=== PATIENT | male | born 1945 | race Caucasian/White ===

== ENCOUNTER 2016-09-17 12:18 | Inpatient (IN) | payer MEDICARE ==
[2016-09-17] VITALS (16 sets, daily range): BP systolic 103–133; BP diastolic 51–70
[~2016-09-17] VITALS: Ht 175.3 cm; Wt 59.5 kg
[~2016-09-17 12:18] MED LIST: AMLO5TAB PO; BACTRIM DS 8001 TA1 PO; BISOPROLOL 5MG T5 MG PO; FOLIC ACID 1MG T1 MG PO; HABITROL21 MG/24 H TD; K-DUR 2020 MEQ PO; KEFLEX 500MG.500 MG PO; LISINOPRIL10 MG PO; LORAZEPAM0.5 MG PO; OXAZEPAM10 MG PO; RISPERIDONE1 M2 PO; TAB-A-VITE1 TA1 PO; THIAMINE HCL100 MG PO; XARELTO15 MG PO
[2016-09-17 13:23] LABS: BUN 35 mg/dL (7-18)
[2016-09-17 13:26] LABS: GFR (ESTIMATED) 96 ML/MIN (>60)
[2016-09-17 13:32] LABS: LYMPH # 1.6 K/mm3 (0.7-4.5); LYMPH % 7.4 % (10-50)
[2016-09-17 13:34] LABS: HEMOGLOBIN 6.8 g/dL (14.1-18.0)
[2016-09-17 13:57] LABS: NEUTROPHILS 84 % (42-76)
--- NOTE | 2016-09-17 15:09 | CONSULT NOTE ---
Pharmacokinetic Consult Date of consult: 09/17/16 Time of consult: 5363 Referring provider: DR. ZAMAN Reason for consult: VANCOMYCIN AND TOBRAMYCIN DOSING Allergies: Coded Allergies: No Known Allergies (07/06/16) Home Medications: Active Scripts BISOPROLOL FUMARATE (Bisoprolol 5MG) 2.5 MG PO DAILY #30 TAB Ref 3 Prov: 07/19/16 Risperidone 1 MG PO BID #60 TAB Ref 3 Prov: 07/19/16 THIAMINE HCL (Thiamine HCl) 100 MG PO BID #60 TAB Ref 3 Prov: 07/19/16 Nicotine (Nicotine Patch) 21 MG TD DAILYP PRN SMOKING CESSATION #30 PATCH Ref 3 Prov: 07/19/16 MULTIPLE VITAMIN (Tab-A-Judith) 1 EACH PO 1700 #100 TAB Ref 2 Prov: 07/19/16 Amlodipine Besylate (Amlodipine) 5 MG PO DAILY #30 TAB Ref 3 Prov: 07/19/16 Lisinopril 10 MG PO BID #60 TAB Ref 3 Prov: 07/19/16 Rivaroxaban (Xarelto) 15 MG PO DAILY #14 TAB Ref 1 Prov: 07/19/16 SULFAMETHOXAZOLE W/TRIMETHOPRI (Bactrim Ds Tab) 1 TAB PO BID #20 TAB Prov: 07/19/16 Potassium Chloride (K-Dur) 20 MEQ PO BID #60 TER Prov: 07/19/16 FOLIC ACID (Folic Acid) 1 MG PO DAILY #30 TAB Ref 5 Prov: 09/04/15 Height (feet): 5 Height (inches): 9.00 Medical History: CAD? No Angina: No HI: No Hypertension? Yes Hyperlipidemia? No CHF? No DVT? No PE? No COPD? Yes Asthma? No Anemia? No GERD? No Gastric ulcers? No GI Bleed? No Hernia? No Thyroid Problems? No Hypothyroidism? No CVA? No Seizures? No Diabetes? No Renal Insuffiency? No UTI? No Stones? No BPH? No GB Disease: No Nephritic Syndrome? No Asplenia? No Hepatitis? No Sickle Cell Disease? No Arthritis? No Migraines? No Cataracts? No Glaucoma? No MRSA? No HIV? No TB? No Anxiety? Yes Depression? Yes Cancer? No More? Yes Additional hx: REFUSE TO TALK ABOUT MEDICAL HX; states he is not taking any meds Labs: Laboratory Tests 02/01/17 1300: Lactic Acid 1.4 09/17/16 1300: Sodium 133 L, Potassium 3.9, Chloride 99, Carbon Dioxide 25, BUN 35 H, Creatinine 0.8, Estimated GFR (MDRD) 96, Glucose 108 H, Calcium 8.8, Total Bilirubin 0.2, AST 43 H, ALT 35, Alkaline Phosphatase 204 H, Total Protein 6.5 , Albumin 1.6 L, Globulin 4.9 H, Albumin/Globulin Ratio 0.3 L, WBC 22.3 *H, RBC 2.30 L, Hgb 6.8 *L, Hct 20.7 *L, MCV 90.2, RDW 16.8, Plt Count 824 H, MPV 8.6, Gran % 85.3 H, Gran # 19.0 H, Total Counted 100, Lymphocytes % 7.4 L, Monocytes % 5.9, Eosinophils % 0.9, Basophils % 0.5, Neutrophils 84 H, Lymphocytes (Manual) 8 L, Lymphocytes # 1.6, Monocytes (Manual) 8, Monocytes # 1.3 H, Eosinophils # 0.2, Basophils # 0.1, Platelet Estimate MARKED INCREASE, PUBS MCHC 32.8, MCH 29.6 Microbiology 09/17 1300 BLOOD: Anaerobic Blood Culture - RECD 09/17 1300 BLOOD: Aerobic Blood Culture - RECD 09/17 1300 BLOOD: Anaerobic Blood Culture - RECD 09/17 1300 BLOOD: Aerobic Blood Culture - RECD Plan: BASED ON PATIENT FACTORS, RECOMMEND PATIENT START WITH VANCOMYCIN 1 GM Q18H AND TOBRAMYCIN 320 MG Q24H. PHARMACY WILL FOLLOW DAILY AND ADJUST APPROPRIATE. WOOD MILTON PHARMD at [phone]
[2016-09-17] MEDS ORDERED: ACETAMINOPHEN500 M5 FT (15:14)
[2016-09-17] MEDS ORDERED: ASPIRIN 81MG TA81 MG FT (15:15)
[2016-09-17] MEDS ORDERED: BISOPROLOL 5MG T5 MG FT (15:18)
[2016-09-17] MEDS ORDERED: RISPERDAL 0.20.25 MG FT (15:21)
[2016-09-17] MEDS ORDERED: FERROUS SULFAT325 M2 FT (15:23)
[2016-09-17] MEDS ORDERED: FOLIC ACID 1MG T1 MG FT (15:25)
[2016-09-17] MEDS ORDERED: NAMENDA10 M1 FT (15:29)
[2016-09-17] MEDS ORDERED: DAILY MULTIPLE1 T11 FT (15:33)
[2016-09-17] MEDS ORDERED: VALPROIC A250 MG/5 M FT (15:35)
[2016-09-17] MEDS ORDERED: VITAMIN B-1100 MG FT (15:36)
[2016-09-17] MEDS ORDERED: VITAMIN C500 M1 FT (15:37)
[2016-09-17] MEDS ORDERED: JUVEN1 PDR FT (15:39)
[2016-09-17] MEDS ORDERED: BANATROL PLUS1 SOL FT (15:40)
--- NOTE | 2016-09-17 15:40 | RADIOLOGY REPORT PS360 ---
CHEST-PORTABLE HISTORY: FEVER, CHRONIC ASPIRATION ORDERING PHYSICIAN: Mark Mcgowan MD PATIENT AGE: 70 years COMPARISON: 07/10/2016 FINDINGS: The cardiomediastinal silhouette and pulmonary vascularity are within normal limits. Left lower lobe pneumonia has improved compared to the previous exam. Lungs are clear. Left upper extremity PICC line is present with the tip in the region superior vena cava. Degenerative changes of the shoulders with bilateral spurring of the interaspect of the acromium. IMPRESSION: No acute finding. PICC line in place
[2016-09-17] MEDS ORDERED: MOTRIN 400MG.400 MG FT (15:48)
[2016-09-17] MEDS ORDERED: OMEPRAZOLE40 MG FT (15:49)
[2016-09-17] MEDS ORDERED: FLORASTOR250 M1 FT (15:51)
[2016-09-17] MEDS ORDERED: LEVSIN0.125 M1 FT (15:55)
[2016-09-17] MEDS ORDERED: BIOTENE473 ML OR (16:00)
[2016-09-17] MEDS ORDERED: BIOTENE DE (16:02)
[2016-09-17] MEDS ORDERED: AUGMENTIN 875-1 EACH FT (16:06)
[2016-09-17] MEDS ORDERED: VITAL CAL FT (16:18)
[2016-09-17 16:21] LABS: URINE BILIRUBIN - DIPSTICK NEGATIVE (NEG); URINE BLOOD NEGATIVE (NEG)
--- NOTE | 2016-09-17 18:03 | HISTORY AND PHYSICAL REPORT ---
Demographics: Admit date: 09/17/16 Chief complaint: Fever, anemia PRIMARY DIAGNOSIS: ANEMIA FEVER Allergies: Coded Allergies: No Known Allergies (07/06/16) History of present illness: History of present illness: 70 year old male with multiple medical problems including pulmonary emboli, CVA, chronic alcohol-related malnutrition and demetia, and chronic wounds was admitted from [facility] today secondary to anemia and high-grade fever. He was originally transferred to the out-patient infusion area for transfusion but found to have fever up to 103 with tachycardia and tachypnea and was admitted for management of both the anemia and fever. He has been running fevers intermittently since admission to [facility] in early August and most recently has been treated for both influenza type B (treatment complete) and now ESBL positive E. coli in his urine (treatment started on 09/13/16 and antibiotics changed on 09/16/16 based on sensitivities). With respect to chronic wounds, he has been seen weekly by wound-health and social care teacher at [facility] and has recently had debridement of wounds on both hips. The right hip wound was debrided earlier this week and bled substantially afterward for several hours, likely contributing to his degree of anemia. With respect to past stroke disease, PE, malnutrition and dementia, he had a PEG placed at [facility] approximately 1 month ago and has remained NPO other than ice chips at [facility]. Has been on Eliquis and ASA but Eliquis was stopped yesterday due to anemia. Past medical history: Family HX Family Hx Insignificant Yes (unknown and unable to obtain) Immunization HX DT/Tetanus Unknown Flu Refused Pneumonia Unknown Other UNABLE TO EVALUATE TB Test in last year Yes Result N/A General CAD? No Angina: No VA: No Hypertension? Yes Hyperlipidemia? No CHF? No DVT? No PE? Yes COPD? Yes Asthma? No Anemia? Yes GERD? No Gastric ulcers? No GI Bleed? No Hernia? No Thyroid Problems? No Hypothyroidism? No CVA? Yes Seizures? No Diabetes? No Renal Insuffiency? No UTI? Yes Stones? No BPH? No GB Disease: No Nephritic Syndrome? No Asplenia? No Hepatitis? No Sickle Cell Disease? No Arthritis? No Migraines? No Cataracts? No Glaucoma? No MRSA? No HIV? No TB? No Anxiety? Yes Depression? Yes Cancer? No More? Yes Additional hx: dysphagia requiring PEG, chronic malnutrition, past alcohol abuse with associated dementia Past Surgical HX Previous Surgery? PEG placed at [facility] Current home meds: Reported Medications Acetaminophen (Acetaminophen Extra Strength) 500 MG FT TID PRN PAIN ASPIRIN (Aspirin) 81 MG FT DAILY BISOPROLOL FUMARATE (Bisoprolol 5MG) 5 MG FT DAILY Risperidone (Risperdal 0.25MG Tab) 0.25 MG FT QHS Ferrous Sulfate (Ferrous Sulfate 325MG) 325 MG FT DAILY FOLIC ACID (Folic Acid) 1 MG FT DAILY MEMANTINE HCL (Namenda) 10 MG FT BID MULTIVITAMIN (Daily Multiple Vitamin) 1 TAB FT DAILY Valproic Acid (As Sodium Salt) (Valproic Acid) 250 MG FT QHS THIAMINE HCL (Vitamin B-1) 100 MG FT DAILY Ascorbic Acid (Vitamin C) 500 MG FT BID ARGININE/GLUTAMINE/CALCIUM HMB (John Packet) 1 PDR FT DAILY BANANA FLAKES/TOS (Banatrol Plus Powder Packet) 237 ML FT TID Ibuprofen (MOTRIN 400MG) 400 MG FT Q8HP PRN FEVER Omeprazole (Omeprazole 40MG) 40 MG FT DAILY Saccharomyces Boulardii (Florastor) 250 MG FT DAILY Hyoscyamine Sulfate (Levsin) 0.125 MG FT Q4H PRN STOMACH LACTOPEROXI/GLUC OXID/POT THIO (Biotene Oralbalance Gel) 2.2 ML DE Q4H Amoxicillin/Potassium Clav (Augmentin 875-125 Tablet) 1 EACH FT BID NUT.TX.IMPAIRED DIGEST/FIBER (Vital 1.5 Santo Liquid) 237 ML FT 20 HRS DAILY Social Hx: Smoking HX Tobacco No Alcohol Alcohol: Yes How much do you drink HISTORY OF ALCOHOL Comment UNABLE TO EVALUATE Hx of Drug Use Drug Use? No Patien't marital status is single Patient's support system is poor Comment: siblings involved but out of state Review of systems: Constitutional fever, weakness. Eyes No: no symptoms reported. Ears, Nose, Mouth, Throat No no symptoms reported, dental caries Respiratory other (copious secretions). Cardiovascular No chest pain, No edema Gastrointestinal/Abdominal No abdomen distended, No abdominal pain, No blood streaked bowels, No constipated, diarrhea Genitourinary see HPI. Musculoskeletal No: other (DENIES PAIN). Skin see HPI. Neurological Yes: weakness. Psychiatric Yes: depressed, other (aggitation improved, risperdal). Comment: taken from chart and some from patient, difficult to understand due to poor vocal quality Exam: Lab data for last 24 hours: Laboratory Tests 09/17/161514: Urine Color YELLOW, Urine Appearance CLEAR, Urine pH 7.5, Ur Specific Perry 1.010, Urine Protein TRACE H, Urine Ketones NEGATIVE, Urine Blood NEGATIVE, Urine Nitrate NEGATIVE, Urine Bilirubin NEGATIVE, Urine Urobilinogen 0.2, Ur Leukocyte Esterase NEGATIVE, Urine RBC NONE, Urine WBC OCC, Ur Squamous Epith Cells NONE, Calcium Oxalate Crystal OCC, Urine Bacteria TRACE, Urine Glucose NEGATIVE 09/17/16 1300: Lactic Acid 1.4 09/17/16 1300: Sodium 133 L, Potassium 3.9, Chloride 99, Carbon Dioxide 25, BUN 35 H, Creatinine 0.8, Estimated GFR (MDRD) 96, Glucose 108 H, Calcium 8.8, Total Bilirubin 0.2, AST 43 H, ALT 35, Alkaline Phosphatase 204 H, Total Protein 6.5 , Albumin 1.6 L, Globulin 4.9 H, Albumin/Globulin Ratio 0.3 L, WBC 22.3 *H, RBC 2.30 L, Hgb 6.8 *L, Hct 20.7 *L, MCV 90.2, RDW 16.8, Plt Count 824 H, MPV 8.6, Gran % 85.3 H, Gran # 19.0 H, Total Counted 100, Lymphocytes % 7.4 L, Monocytes % 5.9, Eosinophils % 0.9, Basophils % 0.5, Neutrophils 84 H, Lymphocytes (Manual) 8 L, Lymphocytes # 1.6, Monocytes (Manual) 8, Monocytes # 1.3 H, Eosinophils # 0.2, Basophils # 0.1, Platelet Estimate MARKED INCREASE, PUBS MCHC 32.8, MCH 29.6 Microbiology 09/17 1514 URINE CATH: Urine Culture - RECD 09/17 1299 BLOOD: Anaerobic Blood Culture - RECD 09/17 1299 BLOOD: Aerobic Blood Culture - RECD 09/17 1299 BLOOD: Anaerobic Blood Culture - RECD 09/17 1299 BLOOD: Aerobic Blood Culture - RECD Admission vital signs: 1ST Vital Signs Result Date Time Pulse Ox 98 09/17 1428 B/P 109/55 09/17 1428 O2 Delivery ROOM AIR 09/17 1428 Temp 99.5 09/17 1428 Pulse 109 09/17 1428 Resp 24 09/17 1603 Additional information: Chronically debilitated male resting in bed, appears much older than stated age. Heart with RRR, lungs are clear anterior bella. Abdomen is thin, soft, NT/ND, PEG without drainage or erythema. Pupils equal bilat, mouth is moist, poor dentition. Neck supple without masses. Moves all extremities which are thin with muscle wasting. 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 Catheter is draining clear yellow urine. Wakes easily to voice, moves all extremities, answers some simple questions but vocal quality if very soft and poor and difficult to completely discern Plan: Problem List 1. Leukocytosis Assessment/Plan most likely related to ESBL positive UTI, trend during admission. Antibiotics started with vancomycin and tobra via PICC. New cultures pending 2. Decubitus ulcer Assessment/Plan culture done of the left hip wound 3. Protein-calorie malnutrition, severe Status Chronic Assessment/Plan on tube feeds, panel machine tender consulted 4. Pulmonary embolism Status Acute Assessment/Plan hold anticoagulants due to severe anemia 5. Fever 6. UTI (urinary tract infection) Assessment/Plan known ESBL positive ecoli, continue tobramycin. New culture collected at admit 7. Anemia Assessment/Plan transfuse 2 units tonight, FU H&H at 1 hour post and likely will need additional units. Continue supplements. Check stool for occult blood Plan: Prognosis overall is poor due to his malnutrition and multiple medical problems. Currently is a full-code but will attempt to make contact next-of-kin in the next 24 hours with update and to discuss wishes regarding aggressiveness of care.
[2016-09-18] VITALS (13 sets, daily range): BP systolic 114–153; BP diastolic 62–83
[2016-09-18 05:40] LABS: HEMOGLOBIN 8.9 g/dL (14.1-18.0); LYMPH # 1.5 K/mm3 (0.7-4.5)
--- NOTE | 2016-09-18 07:40 | PHARMACY CLINIC NOTE ---
Patient Demographics Patient Demographics Admission date: 09/17/16 Date: 09/18/16 Time: 0739 Allergies Coded Allergies: No Known Allergies (07/06/16) HEIGHT- FT: 5 IN: 9.00 K.692 VTE General Information Labs: Laboratory Tests 09/18 09/18 09/17 0505 0335 1300 Hematology Hgb (14.1 - 18.0 g/dL) 8.9 L 9.0 L 6.8 *L Hct (42.0 - 52.0 %) 28.2 L 28.7 L 20.7 *L Plt Count (142 - 424 K/mm3) 733 H 824 H Disclaimer The following section includes nursing documentation that has been pulled in for pharmacy review. Patient's VTE score: 9 Patient's VTE Risk: MOD RISK Clinical trial participant? No VTE prophylaxis NQF [id number] VTE prophylaxis ordered? Yes Type of prophylaxis/treatment: JAVIER at 0739
--- NOTE | 2016-09-18 08:52 | ACUTE CARE PROGRESS NOTE (QUA) ---
Progress Notes Subjective Date 09/18/16 Time 08 Note 70 yr old male admitted for fever and anemia with Hgb 6.8, seen this morning for routine FU. He is much more alert this morning, voice quality is improved and he states "not too bad" when I ask how he is this morning. He denies pain. Alert, oriented to person only. Most of his speech is discernable today. Heart has RRR, lungs are clear anterior bella. Abdomen is soft, ND, + BS. No edema. Wounds with dressings intact. Catheter with clear yellow urine Patient/family reports: feeling better Nursing reports: no complaints Objective Findings Last VS-Temp:99.1 B/P:153/76 Pulse:90 Resp:22 SaO2:99 ROOM AIR Last weight lbs:127 oz:3 K.692 Method:Bed Scales Reviewed: medications, vital signs, lab results, radiology report, consult note Assessment/Plan Problem List 1. Leukocytosis Assessment/Plan: marginal improvement this morning, continue to trend 2. Decubitus ulcer Assessment/Plan: culture pending, continue dressing changes 3. Protein-calorie malnutrition, severe Status: Chronic Assessment/Plan: resume tube feedings today per school athletic director recommendations 4. Pulmonary embolism Status: Acute 5. Fever 6. UTI (urinary tract infection) Assessment/Plan: Continue tobra and vancomycin IV, culture pending. Known ESBL positive ecoli in urine on admission. 7. Anemia Assessment/Plan: Hgb above 8 today, stool occult blood pending. Repeat H&H in AM. Patient condition Improving Plan: continue current care, consult pharmaceutical engineer This inpt stay is expected to cross 2 MNs from start of care Yes Comments: Emergency guardianship documents recieved today, naming his brother, Omero Evans as guardian, as well as wishes for DNR status.
--- NOTE | 2016-09-18 08:52 | ACUTE CARE PROGRESS NOTE (QUA) ---
Progress Notes Subjective Date 09/18/16 Time 08 Note 70 yr old male admitted for fever and anemia with Hgb 6.8, seen this morning for routine FU. He is much more alert this morning, voice quality is improved and he states "not too bad" when I ask how he is this morning. He denies pain. Alert, oriented to person only. Most of his speech is discernable today. Heart has RRR, lungs are clear anterior bella. Abdomen is soft, ND, + BS. No edema. Wounds with dressings intact. Catheter with clear yellow urine Patient/family reports: feeling better Nursing reports: no complaints Objective Findings Last VS-Temp:99.1 B/P:153/76 Pulse:90 Resp:22 SaO2:99 ROOM AIR Last weight lbs:127 oz:3 K.692 Method:Bed Scales Reviewed: medications, vital signs, lab results, radiology report, consult note Assessment/Plan Problem List 1. Leukocytosis Assessment/Plan: marginal improvement this morning, continue to trend 2. Decubitus ulcer Assessment/Plan: culture pending, continue dressing changes 3. Protein-calorie malnutrition, severe Status: Chronic Assessment/Plan: resume tube feedings today per road freight conductor recommendations 4. Pulmonary embolism Status: Acute 5. Fever 6. UTI (urinary tract infection) Assessment/Plan: Continue tobra and vancomycin IV, culture pending. Known ESBL positive ecoli in urine on admission. 7. Anemia Assessment/Plan: Hgb above 8 today, stool occult blood pending. Repeat H&H in AM. Patient condition Improving Plan: continue current care, consult press operator apprentice This inpt stay is expected to cross 2 MNs from start of care Yes Comments: Emergency guardianship documents recieved today, naming his brother, Omero Evans as guardian, as well as wishes for DNR status.
--- NOTE | 2016-09-18 11:04 | CONSULT NOTE ---
Pharmacokinetic Consult Date of consult: 09/18/16 Time of consult: 1100 Referring provider: DR. ZAMAN Reason for consult: TOBRAMYCIN LEVELS AND INTERVAL CHANGE Allergies: Coded Allergies: No Known Allergies (07/06/16) Home Medications: Reported Medications Hyoscyamine Sulfate (Levsin) 0.125 MG FT Q4HP PRN STOMACH Acetaminophen (Acetaminophen Extra Strength) 500 MG FT TID PRN PAIN ASPIRIN (Aspirin) 81 MG FT DAILY BISOPROLOL FUMARATE (Bisoprolol 5MG) 5 MG FT DAILY Risperidone (Risperdal 0.25MG Tab) 0.25 MG FT QHS Ferrous Sulfate (Ferrous Sulfate 325MG) 325 MG FT DAILY FOLIC ACID (Folic Acid) 1 MG FT DAILY MEMANTINE HCL (Namenda) 10 MG FT BID MULTIVITAMIN (Daily Multiple Vitamin) 1 TAB FT DAILY Valproic Acid (As Sodium Salt) (Valproic Acid) 250 MG FT QHS THIAMINE HCL (Vitamin B-1) 100 MG FT DAILY Ascorbic Acid (Vitamin C) 500 MG FT BID ARGININE/GLUTAMINE/CALCIUM HMB (John Packet) 1 PDR FT DAILY BANANA FLAKES/TOS (Banatrol Plus Powder Packet) 237 ML FT TID Omeprazole (Omeprazole 40MG) 40 MG FT DAILY Saccharomyces Boulardii (Florastor) 250 MG FT DAILY LACTOPEROXI/GLUC OXID/POT THIO (Biotene Oralbalance Gel) 2.2 ML DE Q4H NUT.TX.IMPAIRED DIGEST/FIBER (Vital 1.5 Santo Liquid) 237 ML FT 20 HRS DAILY Discontinued Reported Medications Ibuprofen (MOTRIN 400MG) 400 MG FT Q8HP PRN FEVER Amoxicillin/Potassium Clav (Augmentin 875-125 Tablet) 1 EACH FT BID Height (feet): 5 Height (inches): 9.00 Medical History: CAD? No Angina: No KS: No Hypertension? Yes Hyperlipidemia? No CHF? No DVT? No PE? Yes COPD? Yes Asthma? No Anemia? Yes GERD? No Gastric ulcers? No GI Bleed? No Hernia? No Thyroid Problems? No Hypothyroidism? No CVA? Yes Seizures? No Diabetes? No Renal Insuffiency? No UTI? Yes Stones? No BPH? No GB Disease: No Nephritic Syndrome? No Asplenia? No Hepatitis? No Sickle Cell Disease? No Arthritis? No Migraines? No Cataracts? No Glaucoma? No MRSA? No HIV? No TB? No Anxiety? Yes Depression? Yes Cancer? No More? Yes Additional hx: dysphagia requiring PEG, chronic malnutrition, past alcohol abuse with associated dementia Labs: Laboratory Tests 09/18/16 0505: Sodium 137, Potassium 3.5, Chloride 102, Carbon Dioxide 24, BUN 29 H, Creatinine 0.7 L, Estimated Creat Clear 82, Estimated GFR (MDRD) 112, Glucose 92, Calcium 9.0, WBC 21.8 *H, RBC 3.16 L, Hgb 8.9 L, Hct 28.2 L, MCV 89.2, RDW 16.2, Plt Count 733 H, MPV 8.6, Gran % 84.8 H, Gran # 18.5 H, Lymphocytes % 7.0 L, Monocytes % 6.2, Eosinophils % 1.4, Basophils % 0.6, Lymphocytes # 1.5 , Monocytes # 1.4 H, Eosinophils # 0.3, Basophils # 0.1, PUBS MCHC 31.6 L, MCH 28.2, Random Tobramycin 6.0 09/18/16 0335: Hgb 9.0 L, Hct 28.7 L 09/17/164: Random Tobramycin 10.2 09/17/162025: Misc Test Units BLOOD UNIT RELEASE 09/17/16 1515: Urine Color YELLOW, Urine Appearance CLEAR, Urine pH 7.5, Ur Specific Pollock 1.010, Urine Protein TRACE H, Urine Ketones NEGATIVE, Urine Blood NEGATIVE, Urine Nitrate NEGATIVE, Urine Bilirubin NEGATIVE, Urine Urobilinogen 0.2, Ur Leukocyte Esterase NEGATIVE, Urine RBC NONE, Urine WBC OCC, Ur Squamous Epith Cells NONE, Calcium Oxalate Crystal OCC, Urine Bacteria TRACE, Urine Glucose NEGATIVE 09/17/16 1300: Lactic Acid 1.4 09/17/16 1300: Sodium 133 L, Potassium 3.9, Chloride 99, Carbon Dioxide 25, BUN 35 H, Creatinine 0.8, Estimated GFR (MDRD) 96, Glucose 108 H, Calcium 8.8, Total Bilirubin 0.2, AST 43 H, ALT 35, Alkaline Phosphatase 204 H, Total Protein 6.5 , Albumin 1.6 L, Globulin 4.9 H, Albumin/Globulin Ratio 0.3 L, WBC 22.3 *H, RBC 2.30 L, Hgb 6.8 *L, Hct 20.7 *L, MCV 90.2, RDW 16.8, Plt Count 824 H, MPV 8.6, Gran % 85.3 H, Gran # 19.0 H, Total Counted 100, Lymphocytes % 7.4 L, Monocytes % 5.9, Eosinophils % 0.9, Basophils % 0.5, Neutrophils 84 H, Lymphocytes (Manual) 8 L, Lymphocytes # 1.6, Monocytes (Manual) 8, Monocytes # 1.3 H, Eosinophils # 0.2, Basophils # 0.1, Platelet Estimate MARKED INCREASE, PUBS MCHC 32.8, MCH 29.6 Microbiology 09/17 151 HIP: Wound Culture - RECD 09/17 151 URINE CATH: Urine Culture - RES 09/17 1300 BLOOD: Anaerobic Blood Culture - RECD 09/17 1300 BLOOD: Aerobic Blood Culture - RECD 09/17 1300 BLOOD: Anaerobic Blood Culture - RECD 09/17 1300 BLOOD: Aerobic Blood Culture - RECD Plan: PATIENT TOBRAMYCIN LEVELS AT 2 AND 10 HR POST INFUSION WERE 10.2 MCG/ML AND 6 MCG/ML, RESPECTIVELY, WITH CALCULATED C MAX 10.9 MCG/ML AND CMIN OF 2.28 MCG/ML AT 24 HOUR DOSING INTERVAL. WILL EXTEND CURRENT INTERVAL OUT TO ~36 HR AND OBTAIN TROUGH AT THAT POINT. PATIENT LIKELY TO NEED TOBRAMYCIN 400 MG Q48H. PHARMACY WILL FOLLOW DAILY AND ADJUST APPROPRIATE. WOOD MILTON, PHARMD at 1104
[2016-09-18 16:37] LABS: STOOL OCCULT BLOOD NEG (NEG)
[2016-09-19] VITALS (9 sets, daily range): BP systolic 124–185; BP diastolic 60–97
[2016-09-19 06:16] LABS: HEMOGLOBIN 8.8 g/dL (14.1-18.0); LYMPH # 1.8 K/mm3 (0.7-4.5); LYMPH % 7.3 % (10-50)
--- NOTE | 2016-09-19 08:14 | ACUTE CARE PROGRESS NOTE (QUA) ---
Progress Notes Subjective Date 09/19/16 Time 0812 Note Overall patient is much more talkative, has much better color and capillary refill. Labs from this morning reviewed. Antibiotics reviewed. Anterior lung bella with good air movement, continues with rhonchi, abdomen soft and nontender, G-tube infusing well. Skin turgor is much improved. Wounds are as noted on nursing pictorial documentation. Objective Findings Last VS-Temp:99.9 B/P:170/60 Pulse:110 Resp:20 SaO2:97 ROOM AIR Last weight lbs:127 oz:3 K.692 Method:Bed Scales Assessment/Plan Problem List 1. Leukocytosis 2. Decubitus ulcer 3. Protein-calorie malnutrition, severe Status: Chronic 4. Pulmonary embolism Status: Acute 5. Fever 6. UTI (urinary tract infection) 7. Anemia Patient condition Improving Plan: continue current care, change in antibiotic coverage as noted below.close follow-up. Continue supportive care. Reviewed current DNR status, guardianship change, I agree with DNR status given patient's overwhelming medical problems and poor prognosis. This inpt stay is expected to cross 2 MNs from start of care Yes Antibiotic Stewardship (2) Current Culture Results Microbiology 09/18 1613 SPUTUM: Sputum Culture - ORD 09/18 1613 SPUTUM: Gram Stain - ORD 09/17 1515 HIP: Wound Culture - COMP KLEBSIELLA PNEUMONIAE 09/17 1515 URINE CATH: Urine Culture - COMP 09/17 1300 BLOOD: Anaerobic Blood Culture - RECD 09/17 1300 BLOOD: Aerobic Blood Culture - RECD Infxn that will respond? Yes Right drug,dose,and route? Yes More targeted antbx? No How long atbx needed? 10 at 0813
[2016-09-19 08:39] LABS: NEUTROPHILS 84 % (42-76)
--- NOTE | 2016-09-19 09:41 | CONSULT NOTE ---
Pharmacokinetic Consult Date of consult: 09/19/16 Time of consult: 935 Referring provider: DR. ZAMAN Reason for consult: VANCOMYCIN AND TOBRAMYCIN TROUGH LEVELS Allergies: Coded Allergies: No Known Allergies (07/06/16) Home Medications: Reported Medications Hyoscyamine Sulfate (Levsin) 0.125 MG FT Q4HP PRN STOMACH Acetaminophen (Acetaminophen Extra Strength) 500 MG FT TID PRN PAIN ASPIRIN (Aspirin) 81 MG FT DAILY BISOPROLOL FUMARATE (Bisoprolol 5MG) 5 MG FT DAILY Risperidone (Risperdal 0.25MG Tab) 0.25 MG FT QHS Ferrous Sulfate (Ferrous Sulfate 325MG) 325 MG FT DAILY FOLIC ACID (Folic Acid) 1 MG FT DAILY MEMANTINE HCL (Namenda) 10 MG FT BID MULTIVITAMIN (Daily Multiple Vitamin) 1 TAB FT DAILY Valproic Acid (As Sodium Salt) (Valproic Acid) 250 MG FT QHS THIAMINE HCL (Vitamin B-1) 100 MG FT DAILY Ascorbic Acid (Vitamin C) 500 MG FT BID ARGININE/GLUTAMINE/CALCIUM HMB (John Packet) 1 PDR FT DAILY BANANA FLAKES/TOS (Banatrol Plus Powder Packet) 237 ML FT TID Omeprazole (Omeprazole 40MG) 40 MG FT DAILY Saccharomyces Boulardii (Florastor) 250 MG FT DAILY LACTOPEROXI/GLUC OXID/POT THIO (Biotene Oralbalance Gel) 2.2 ML DE Q4H NUT.TX.IMPAIRED DIGEST/FIBER (Vital 1.5 Santo Liquid) 237 ML FT 20 HRS DAILY Discontinued Reported Medications Ibuprofen (MOTRIN 400MG) 400 MG FT Q8HP PRN FEVER Amoxicillin/Potassium Clav (Augmentin 875-125 Tablet) 1 EACH FT BID Height (feet): 5 Height (inches): 9.00 Medical History: CAD? No Angina: No [place]: No Hypertension? Yes Hyperlipidemia? No CHF? No DVT? No PE? Yes COPD? Yes Asthma? No Anemia? Yes GERD? No Gastric ulcers? No GI Bleed? No Hernia? No Thyroid Problems? No Hypothyroidism? No CVA? Yes Seizures? No Diabetes? No Renal Insuffiency? No UTI? Yes Stones? No BPH? No GB Disease: No Nephritic Syndrome? No Asplenia? No Hepatitis? No Sickle Cell Disease? No Arthritis? No Migraines? No Cataracts? No Glaucoma? No MRSA? No HIV? No TB? No Anxiety? Yes Depression? Yes Cancer? No More? Yes Additional hx: dysphagia requiring PEG, chronic malnutrition, past alcohol abuse with associated dementia Labs: Laboratory Tests 09/19/16 0610: Valproic Acid 11.9 L 09/19/16 0610: Sodium 139, Potassium 3.0 L, Chloride 106, Carbon Dioxide 24, BUN 17, Creatinine 0.6 L, Estimated Creat Clear 96, Estimated GFR (MDRD) 134, Glucose 113 H, Calcium 8.9, WBC 24.4 *H, RBC 3.13 L, Hgb 8.8 L, Hct 28.1 L, MCV 89.8 , RDW 16.1, Plt Count 752 H, MPV 8.5, Gran % 84.8 H, Gran # 20.7 H, Total Counted 100, Lymphocytes % 7.3 L, Monocytes % 5.9, Eosinophils % 1.4, Basophils % 0.6, Neutrophils 84 H, Lymphocytes (Manual) 12, Lymphocytes # 1.8, Monocytes (Manual) 4, Monocytes # 1.5 H, Eosinophils # 0.3, Basophils # 0.2, Platelet Estimate MARKED INCREASE, Hypochromasia 1+, Anisocytosis 1+, PUBS MCHC 31.3 L, MCH 28.1, Tobramycin Trough 0.5 09/19/16 0045: Vancomycin Trough 11.7 H 09/18/16 1530: Stool Occult Blood NEG Microbiology 09/18 1613 SPUTUM: Sputum Culture - ORD 09/18 1613 SPUTUM: Gram Stain - ORD Problem List: 1. Fever Plan: BASED ON VANCOMYCIN TROUGH LEVEL, RECOMMEND CONTINUING VANCOMYCIN 1 GM IV Q18H. BASED ON TOBRAMYCIN 12-HOUR POST INFUSION LEVEL, RECOMMEND CHANGING INTERVAL TO Q36H. WOUND CULTURE=KLEBSIELLA PNEUMONIAE RESISTANT TO TOBRAMYCIN SENSITIVE TO GENTAMICIN AND INVANZ BASED ON PATIENT FACTORS, RECOMMEND GENTAMICIN 400 MG IV Q36H. PHARMACY WILL FOLLOW DAILY AND ADJUST APPROPRIATE. at 0941
[2016-09-20] VITALS (9 sets, daily range): BP systolic 118–156; BP diastolic 54–92
[2016-09-20 07:30] LABS: LYMPH # 1.3 K/mm3 (0.7-4.5); LYMPH % 5.1 % (10-50)
[2016-09-20 07:44] LABS: HEMOGLOBIN 8.5 g/dL (14.1-18.0)
--- NOTE | 2016-09-20 08:14 | ACUTE CARE PROGRESS NOTE (QUA) ---
Progress Notes Admission Date: 09/17/16 Subjective Date 09/20/16 Time 0813 Note Patient continues to be alert. Yesterday through the evening had heart rates in the 150s. His regular bisoprolol dose was started. Lungs have rhonchi, skin is unchanged, skin turgor is improved. He is pleasant and talkative. Objective Findings Last VS-Temp:99.0 B/P:118/54 Pulse:107 Resp:18 SaO2:94 ROOM AIR Last weight lbs:121 oz:2 K.941 Method:Bed Scales Assessment/Plan Problem List 1. Leukocytosis 2. Decubitus ulcer 3. Protein-calorie malnutrition, severe Status: Chronic 4. Pulmonary embolism Status: Acute 5. Fever 6. UTI (urinary tract infection) 7. Anemia Patient condition Improving Plan: continue current care, continue antibiotics, discussed with skilled nursing whether or not venous access will be needed for long-term antibiotics. This inpt stay is expected to cross 2 MNs from start of care Yes Antibiotic Stewardship (2) Infxn that will respond? Yes Right drug,dose,and route? Yes More targeted antbx? No at 0814
--- NOTE | 2016-09-20 08:14 | ACUTE CARE PROGRESS NOTE (QUA) ---
Progress Notes Admission Date: 09/17/16 Subjective Date 09/20/16 Time 0813 Note Patient continues to be alert. Yesterday through the evening had heart rates in the 150s. His regular bisoprolol dose was started. Lungs have rhonchi, skin is unchanged, skin turgor is improved. He is pleasant and talkative. Objective Findings Last VS-Temp:99.0 B/P:118/54 Pulse:107 Resp:18 SaO2:94 ROOM AIR Last weight lbs:121 oz:2 K.941 Method:Bed Scales Assessment/Plan Problem List 1. Leukocytosis 2. Decubitus ulcer 3. Protein-calorie malnutrition, severe Status: Chronic 4. Pulmonary embolism Status: Acute 5. Fever 6. UTI (urinary tract infection) 7. Anemia Patient condition Improving Plan: continue current care, continue antibiotics, discussed with assisted whether or not venous access will be needed for long-term antibiotics. This inpt stay is expected to cross 2 MNs from start of care Yes Antibiotic Stewardship (2) Infxn that will respond? Yes Right drug,dose,and route? Yes More targeted antbx? No at 0814
[2016-09-21] VITALS (8 sets, daily range): BP systolic 114–152; BP diastolic 53–85
--- NOTE | 2016-09-21 08:19 | ACUTE CARE PROGRESS NOTE (QUA) ---
Progress Notes Subjective Date 09/21/16 Time 0816 Note Patient is more alert today, oriented 2, very talkative. Anterior lung bella are clear, heart rate regular. Skin turgor is improved, his wounds are still awful looking with drainage, foul, purulent drainage and blood on the dressing. Objective Findings Last VS-Temp:97.2 B/P:149/85 Pulse:101 Resp:22 SaO2:99 ROOM AIR Last weight lbs:121 oz:4 K.998 Method:Bed Scales Assessment/Plan Problem List 1. Leukocytosis 2. Decubitus ulcer 3. Protein-calorie malnutrition, severe Status: Chronic 4. Pulmonary embolism Status: Acute 5. Fever 6. UTI (urinary tract infection) 7. Anemia Patient condition Improving, Guarded Plan: continue current care, although patient has improved he continues to exhibit worsening leukocytosis and evidence of severe infection, compromised by his severe protein calorie malnutrition and burden of infection. I do not believe he has a good prognosis. We will continue IV antibiotics. Consider transfer back to skilled nursing with palliative care if we can maintain long-term IV access. This inpt stay is expected to cross 2 MNs from start of care Yes Antibiotic Stewardship (2) Infxn that will respond? Yes Right drug,dose,and route? Yes More targeted antbx? No at 0818
--- NOTE | 2016-09-21 12:51 | CONSULT NOTE ---
Pharmacokinetic Consult Date of consult: 09/21/16 Time of consult: 1249 Referring provider: DR. ZAMAN Reason for consult: VANCOMYCIN AND GENTAMICIN TROUGH LEVELS Allergies: Coded Allergies: No Known Allergies (07/06/16) Home Medications: Reported Medications Hyoscyamine Sulfate (Levsin) 0.125 MG FT Q4HP PRN STOMACH Acetaminophen (Acetaminophen Extra Strength) 500 MG FT TID PRN PAIN ASPIRIN (Aspirin) 81 MG FT DAILY BISOPROLOL FUMARATE (Bisoprolol 5MG) 5 MG FT DAILY Risperidone (Risperdal 0.25MG Tab) 0.25 MG FT QHS Ferrous Sulfate (Ferrous Sulfate 325MG) 325 MG FT DAILY FOLIC ACID (Folic Acid) 1 MG FT DAILY MEMANTINE HCL (Namenda) 10 MG FT BID MULTIVITAMIN (Daily Multiple Vitamin) 1 TAB FT DAILY Valproic Acid (As Sodium Salt) (Valproic Acid) 250 MG FT QHS THIAMINE HCL (Vitamin B-1) 100 MG FT DAILY Ascorbic Acid (Vitamin C) 500 MG FT BID ARGININE/GLUTAMINE/CALCIUM HMB (John Packet) 1 PDR FT DAILY BANANA FLAKES/TOS (Banatrol Plus Powder Packet) 237 ML FT TID Omeprazole (Omeprazole 40MG) 40 MG FT DAILY Saccharomyces Boulardii (Florastor) 250 MG FT DAILY LACTOPEROXI/GLUC OXID/POT THIO (Biotene Oralbalance Gel) 2.2 ML DE Q4H NUT.TX.IMPAIRED DIGEST/FIBER (Vital 1.5 Santo Liquid) 237 ML FT 20 HRS DAILY Discontinued Reported Medications Ibuprofen (MOTRIN 400MG) 400 MG FT Q8HP PRN FEVER Amoxicillin/Potassium Clav (Augmentin 875-125 Tablet) 1 EACH FT BID Height (feet): 5 Height (inches): 9.00 Medical History: CAD? No Angina: No [place]: No Hypertension? Yes Hyperlipidemia? No CHF? No DVT? No PE? Yes COPD? Yes Asthma? No Anemia? Yes GERD? No Gastric ulcers? No GI Bleed? No Hernia? No Thyroid Problems? No Hypothyroidism? No CVA? Yes Seizures? No Diabetes? No Renal Insuffiency? No UTI? Yes Stones? No BPH? No GB Disease: No Nephritic Syndrome? No Asplenia? No Hepatitis? No Sickle Cell Disease? No Arthritis? No Migraines? No Cataracts? No Glaucoma? No MRSA? No HIV? No TB? No Anxiety? Yes Depression? Yes Cancer? No More? Yes Additional hx: dysphagia requiring PEG, chronic malnutrition, past alcohol abuse with associated dementia Labs: Laboratory Tests 09/21/16 0640: Vancomycin Trough 11.4 H 09/21/16 0640: Random Gentamicin 4.5 Microbiology 09/20 1350 SPUTUM: Sputum Culture - RES 09/20 1350 SPUTUM: Gram Stain - RES Problem List: 1. MRSA pneumonia 2. Fever Plan: BASED ON GENTAMICIN LEVEL, RECOMMEND CONTINUING GENTAMICIN 400 MG IV Q36H. BASED ON VANCOMYCIN TROUGH LEVEL, RECOMMEND INCREASING DOSE TO VANCOMYCIN 1250 MG IV Q18H. PHARMACY JESSIE CONTINUE TO MONITOR DAILY AND ADJUST APPROPRIATE. at 8192
[2016-09-22] VITALS (7 sets, daily range): BP systolic 118–157; BP diastolic 64–90
--- NOTE | 2016-09-22 07:58 | ACUTE CARE PROGRESS NOTE (QUA) ---
Progress Notes Subjective Date 09/22/16 Time 0756 Note Overall patient remains alert, complains of a headache this morning, denies breathing problems. Wounds are slightly improved with good nursing care. Lungs are clear, abdomen soft, G-tube infusing well. Overall patient appears chronically and relentlessly ill. Leukocytosis has slightly worsened, renal function is normal Objective Findings Last VS-Temp:101.0 B/P:135/64 Pulse:101 Resp:24 SaO2:95 OXYGEN Last weight lbs:123 oz:4 K.905 Method:Bed Scales Assessment/Plan Problem List 1. Leukocytosis 2. Decubitus ulcer 3. Protein-calorie malnutrition, severe Status: Chronic 4. Pulmonary embolism Status: Acute 5. Fever 6. UTI (urinary tract infection) 7. Anemia Patient condition Stable, Guarded Plan: pplan will be to [facility], start Unasyn therapy to cover anaerobes and to continue coverage for Klebsiella. I think this patient is at the end of the line as far as aggressive antibiotic therapy and would be a good hospice candidate if they would agree to continue antibiotics. Otherwise I think he can be transferred back to his [facility] if they will accept him given his current febrile status and his overall infective status. This inpt stay is expected to cross 2 MNs from start of care Yes Antibiotic Stewardship (2) Current Culture Results Microbiology 09/20 1350 SPUTUM: Sputum Culture - COMP STAPHYLOCOCCUS AUREUS 09/20 1350 SPUTUM: Gram Stain - COMP 09/17 1515 HIP: Wound Culture - COMP KLEBSIELLA PNEUMONIAE 09/17 1515 URINE CATH: Urine Culture - COMP 09/17 1300 BLOOD: Anaerobic Blood Culture - RES 09/17 1300 BLOOD: Aerobic Blood Culture - RES Infxn that will respond? Yes Right drug,dose,and route? Yes More targeted antbx? No How long atbx needed? 10 at 0758
[2016-09-23] VITALS (21 sets, daily range): BP systolic 124–159; BP diastolic 55–88
[2016-09-23 06:34] LABS: LYMPH # 1.3 K/mm3 (0.7-4.5); LYMPH % 5.8 % (10-50)
[2016-09-23 06:36] LABS: HEMOGLOBIN 7.9 g/dL (14.1-18.0)
--- NOTE | 2016-09-23 08:22 | ACUTE CARE PROGRESS NOTE (QUA) ---
Progress Notes Subjective Date 09/23/16 Time 0730 Note Patient has had increased temps through the night. This morning he will open he eyes, but is not communicating or answering simple yes/no questions. Appears comfortable will no grimacing noted on exam. Opens eyes to voice. Lung sounds with coarse crackles right base, left clear. Rate and rhythm regular. Abdomen soft and non-tender. Wounds have improved some, see nursing documentation. Patient/family reports: no complaints Nursing reports: fever Objective Findings Last VS-Temp:101.3 B/P:159/73 Pulse:116 Resp:20 SaO2:100 OXYGEN Last weight lbs:129 oz:9 K.769 Method:Bed Scales Reviewed: medications, vital signs, lab results Assessment/Plan Problem List 1. Leukocytosis Assessment/Plan: Continue Unasyn therapy to cover anaerobes and gentamicin and vancomycin for Klebsiella. 2. Decubitus ulcer Assessment/Plan: Continue wound care. 3. Protein-calorie malnutrition, severe Status: Chronic Assessment/Plan: Continue tube feedings. 4. Pulmonary embolism Status: Acute 5. Fever Assessment/Plan: See above. 6. UTI (urinary tract infection) Assessment/Plan: See above 7. Anemia Assessment/Plan: Transfusion 2 units PRBCs today. Plan to transfer back to intermediate tomorrow if they will except. Hospice declined due to extensive antibiotic regimen. 8. Hypokalemia Status: Acute Assessment/Plan: Potassium replacement this morning. Recheck BMP at 1300 Patient condition Guarded Plan: continue current care (see above) This inpt stay is expected to cross 2 MNs from start of care Yes Antibiotic Stewardship (2) Infxn that will respond? Yes Right drug,dose,and route? Yes More targeted antbx? No
[2016-09-23 11:47] LABS: ABO BLOOD TYPE O; RH BLOOD TYPE POSITIVE
[2016-09-23 11:48] LABS: ANTIHUMAN GLOB CROSSMATCH COMPAT
[2016-09-23 14:28] LABS: NEUTROPHILS 86 % (42-76)
--- NOTE | 2016-09-23 14:44 | CONSULT NOTE ---
Pharmacokinetic Consult Date of consult: 09/23/16 Time of consult: 1422 Referring provider: DR. ZAMAN Reason for consult: VANCOMYCIN TROUGH LEVEL Allergies: Coded Allergies: No Known Allergies (07/06/16) Home Medications: Reported Medications Hyoscyamine Sulfate (Levsin) 0.125 MG FT Q4HP PRN STOMACH Acetaminophen (Acetaminophen Extra Strength) 500 MG FT TID PRN PAIN ASPIRIN (Aspirin) 81 MG FT DAILY BISOPROLOL FUMARATE (Bisoprolol 5MG) 5 MG FT DAILY Risperidone (Risperdal 0.25MG Tab) 0.25 MG FT QHS Ferrous Sulfate (Ferrous Sulfate 325MG) 325 MG FT DAILY FOLIC ACID (Folic Acid) 1 MG FT DAILY MEMANTINE HCL (Namenda) 10 MG FT BID MULTIVITAMIN (Daily Multiple Vitamin) 1 TAB FT DAILY Valproic Acid (As Sodium Salt) (Valproic Acid) 250 MG FT QHS THIAMINE HCL (Vitamin B-1) 100 MG FT DAILY Ascorbic Acid (Vitamin C) 500 MG FT BID ARGININE/GLUTAMINE/CALCIUM HMB (John Packet) 1 PDR FT DAILY BANANA FLAKES/TOS (Banatrol Plus Powder Packet) 237 ML FT TID Omeprazole (Omeprazole 40MG) 40 MG FT DAILY Saccharomyces Boulardii (Florastor) 250 MG FT DAILY LACTOPEROXI/GLUC OXID/POT THIO (Biotene Oralbalance Gel) 2.2 ML DE Q4H NUT.TX.IMPAIRED DIGEST/FIBER (Vital 1.5 Santo Liquid) 237 ML FT 20 HRS DAILY Discontinued Reported Medications Ibuprofen (MOTRIN 400MG) 400 MG FT Q8HP PRN FEVER Amoxicillin/Potassium Clav (Augmentin 875-125 Tablet) 1 EACH FT BID Height (feet): 5 Height (inches): 9.00 Medical History: CAD? No Angina: No [place]: No Hypertension? Yes Hyperlipidemia? No CHF? No DVT? No PE? Yes COPD? Yes Asthma? No Anemia? Yes GERD? No Gastric ulcers? No GI Bleed? No Hernia? No Thyroid Problems? No Hypothyroidism? No CVA? Yes Seizures? No Diabetes? No Renal Insuffiency? No UTI? Yes Stones? No BPH? No GB Disease: No Nephritic Syndrome? No Asplenia? No Hepatitis? No Sickle Cell Disease? No Arthritis? No Migraines? No Cataracts? No Glaucoma? No MRSA? No HIV? No TB? No Anxiety? Yes Depression? Yes Cancer? No More? Yes Additional hx: dysphagia requiring PEG, chronic malnutrition, past alcohol abuse with associated dementia Labs: Laboratory Tests 09/23/16 1250: Sodium 145, Potassium 3.6, Chloride 112 H, Carbon Dioxide 23, BUN 18, Creatinine 0.7 L, Estimated Creat Clear 84, Estimated GFR (MDRD) 112, Glucose 115 H, Calcium 8.4 L, Vancomycin Trough 15.5 H 09/23/16 1105: Misc Test Units BLOOD UNIT RELEASE 09/23/16 0805: Antibody Screen NEGATIVE, Miscellaneous Test POSITIVE 09/23/16 0615: Sodium 144, Potassium 2.8 *L, Chloride 110 H, Carbon Dioxide 22, BUN 19 H, Creatinine 0.7 L, Estimated Creat Clear 84, Estimated GFR (MDRD) 112, Glucose 118 H, Calcium 8.4 L, WBC 22.6 *H, RBC 2.84 L, Hgb 7.9 *L, Hct 25.6 L, MCV 90.2, RDW 15.9, Plt Count 770 H, MPV 8.7, Gran % 87.6 H, Gran # 19.8 H, Lymphocytes % 5.8 L, Monocytes % 4.4, Eosinophils % 1.8, Basophils % 0.4, Lymphocytes # 1.3, Monocytes # 1.0, Eosinophils # 0.4, Basophils # 0.1, PUBS MCHC 30.8 L, MCH 27.8 Problem List: 1. Fever Plan: BASED ON VANCOMYCIN TROUGH LEVEL, RECOMMEND CONTINUING VANCOMYCIN 1250 MG IV Q18H. PHARMACY WILL CONTINUE TO MONITOR DAILY AND ADJUST APPROPRIATE. at 6946
[2016-09-23 20:05] LABS: HEMOGLOBIN 9.9 g/dL (14.1-18.0)
[2016-09-24 04:23] VITALS: BP 144/75
[2016-09-24 06:51] LABS: LYMPH # 1.7 K/mm3 (0.7-4.5)
[2016-09-24 07:37] LABS: HEMOGLOBIN 9.3 g/dL (14.1-18.0)
--- NOTE | 2016-09-24 08:00 | ACUTE CARE PROGRESS NOTE (QUA) ---
Progress Notes Subjective Date 09/24/16 Time 0759 Note Patient remains responsive, talkative, continues to run high grade fevers. Wound continue be addressed successfully by our nursing staff. Cultures reviewed. Anterior lung bella are clear, heart rate regular, blood pressure has been stable. Objective Findings Last VS-Temp:99.8 B/P:144/75 Pulse:94 Resp:22 SaO2:94 OXYGEN Last weight lbs:133 oz:2 K.384 Method:Bed Scales Assessment/Plan Problem List 1. Leukocytosis 2. Decubitus ulcer 3. Protein-calorie malnutrition, severe Status: Chronic 4. Pulmonary embolism Status: Acute 5. Fever 6. UTI (urinary tract infection) 7. Anemia 8. Hypokalemia Status: Acute Patient condition Stable Plan: continue current care, make care level transfer This inpt stay is expected to cross 2 MNs from start of care Yes Antibiotic Stewardship (2) Infxn that will respond? Yes Right drug,dose,and route? Yes More targeted antbx? No at 0800
--- NOTE | 2016-09-24 08:04 | DISCHARGE SUMMARY STANDARD ---
Demographics Admit date: 09/17/16 Discharge date: 09/24/16 History of present illness History of present illness 70 year old male with multiple medical problems including pulmonary emboli, CVA, chronic alcohol-related malnutrition and demetia, and chronic wounds was admitted from [facility] today secondary to anemia and high-grade fever. He was originally transferred to the out-patient infusion area for transfusion but found to have fever up to 103 with tachycardia and tachypnea and was admitted for management of both the anemia and fever. He has been running fevers intermittently since admission to [facility] in early August and most recently has been treated for both influenza type B (treatment complete) and now ESBL positive E. coli in his urine (treatment started on 09/13/16 and antibiotics changed on 09/16/16 based on sensitivities). With respect to chronic wounds, he has been seen weekly by wound-director of health care marketing at [facility] and has recently had debridement of wounds on both hips. The right hip wound was debrided earlier this week and bled substantially afterward for several hours, likely contributing to his degree of anemia. With respect to past stroke disease, PE, malnutrition and dementia, he had a PEG placed at [facility] approximately 1 month ago and has remained NPO other than ice chips at [facility]. Has been on Eliquis and ASA but Eliquis was stopped yesterday due to anemia. Hospital Course Hospital Course: Patient was admitted to hospital as noted above. Broad-spectrum antibiotics were started for his wound, febrile status and leukocytosis, and Klebsiella was cultured out of his wound, showing ESBL positive. He was initially started on gentamicin and Invanz. He tolerated this well. Vancomycin was also added because of skin pathology issues, and in fact MRSA grew out of his lung cultures. Vancomycin was continued. Because of continued fevers Invanz was changed to Unasyn every 12 hours for better anaerobic coverage and its concomitant sensitivity vis--vis Klebsiella species from the wound. His leukocytosis improved, and his anemia was treated with a total of 4 units of packed cells. His brother, his current guardian was consulted and felt like his status should be changed to a DNR status given his overall poor prognosis. This was done. Skilled wound care was continued and his wounds have slightly improved although his prognosis for ultimate healing is negligible. He is reached maximal medical improvement here in the hospital. He will need to be transferred back to his long-term care facility with ongoing aggressive wound care as detailed in her physical therapy and nurse's notes, and ongoing IV antibiotics for the next 10 days. Current antibiotic doses will be gentamicin 400 mg every 36 hours for 7 more doses, Unasyn 3 g every 8 hours for 10 more days, and vancomycin 1250 mg every 18 hours. Other medications are as noted. Overall prognosis is poor, mental status is marginal vis--vis comprehension issues, and rehabilitation potential is poor. Family has indicated that when skilled care therapies are finished they would be interested in hospice referral for ongoing palliative care. Discharge diagnoses Problem List 1. Leukocytosis 2. Decubitus ulcer 3. Protein-calorie malnutrition, severe Status Chronic 4. Pulmonary embolism Status Acute 5. Fever 6. UTI (urinary tract infection) 7. Anemia 8. Hypokalemia Status Acute 9. MRSA pneumonia 10. Klebsiella infection Medications Medications: Discharge meds are as noted. Follow up Follow up in office in: 6 DAYS with: Caren Erazo APRN at 0804
[2016-09-24] MEDS ORDERED: VANCO 1.251.25 GM/25 IV (08:06)
[2016-09-24] MEDS ORDERED: UNASYN IV (08:07)
[2016-09-24] MEDS ORDERED: GENTAMICIN SUL IV (08:07)
[2016-09-24 08:15] VITALS: BP 160/72
[2016-09-24 11:04] VITALS: BP 160/72
[2016-09-24 11:24] VITALS: BP 160/72
== END 2016-09-24 13:12 | DRG 177 ==
LOC: 2ND 12:18
PROVIDERS: Internal Medicine Adolescent Medicine
DX: J15.212 Pneumonia due to Methicillin resistant Staphylococcus aureus (principal); I26.99 Other pulmonary embolism without acute cor pulmonale; E43 Unspecified severe protein-calorie malnutrition; L89.229 Pressure ulcer of left hip, unspecified stage; N39.0 Urinary tract infection, site not specified; Z68.1 Body mass index [BMI] 19.9 or less, adult; B96.20 Unspecified Escherichia coli [E. coli] as the cause of diseases classified elsewhere; Z86.73 Personal history of transient ischemic attack (TIA), and cerebral infarction without residual deficits
CPT/HCPCS: J1335; J3370; P9016